=== PATIENT | female | born 1985 | race Caucasian/White ===

== ENCOUNTER 2016-08-22 00:31 | Emergency (ER) | payer MEDICAID ==
[~2016-08-22 00:31] MED LIST: PRENPAK PO; ZOFR4TAB PO
--- NOTE | 2016-08-22 01:48 | PD ---
HPI Chief Complaint Running nose, nasal congestion, sinusitis, contractions Date Seen: Aug 22, 2016 Time Seen: 01:30 Travel History International Travel<30 Days: No Contact w/Intl Traveler<30Days: No Known Affected Area: No History of Present Illness HPI 31-year-old 001 at 41 weeks and 3 days of gestation, EDC 08/12/16, patient presents to OB ED with complain of runny nose, nasal congestion, sinusitis, and contractions. She denies leakage of fluids, vaginal bleeding. She reports presence of movements. care is with Dr. Yanez, course is significant for previous 1. Patient desires to have trial of labor after . Examination shows patient is ramón occasionally, vaginal exam shows cervix is 1-2 cm, 50%, -3, posterior. Patient was scheduled to have this trial of labor on 08/20/16 but did not show up. Para: 1 : 2 Miscarriage: 0 : 0 History Past Medical History Narrative Medical Denies Medical History: Denies Significant Hx Obstetric History Obstetric History delivery 1 Past Surgical History Narrative Surgical delivery 1 Family History Narrative Family History Father has hypertension and diabetes Social History Alcohol Use: No Tobacco Use: No Substance Abuse: No Allergies-Medications (Allergen,Severity, Reaction): Coded Allergies: No Known Allergies (Unverified , 10/29/14) Home Meds Active Scripts Ondansetron (Zofran)4 Mg Tab4 Mg PO Q6HR PRN (NAUSEA OR VOMITING) #10 TAB Ref 0 Prov:Zoë Harmon MD 07/05/16 Reported Medications + Dha 1 Tab PO DAILY 10/20/12 Review of Systems HENT: Other (running nose, nasal congestion) Genitourinary: Other (contractions) Physical Exam Narrative GENERAL: Well-nourished, well-developed patient. SKIN: Warm and dry. HEAD: Normocephalic and atraumatic. EYES: No scleral icterus. No injection or drainage. ENT: No nasal drainage noted. Mucous membranes pink. Airway patent. NECK: Supple, trachea midline. No JVD. CARDIOVASCULAR: Regular rate and rhythm without murmurs, gallops, or rubs. RESPIRATORY: Breath sounds equal bilaterally. No accessory muscle use. BREASTS: Bilateral exam showed no masses , no retractions, no nipple discharge. ABDOMEN/GI: Abdomen soft, gravid, non-tender, bowel sounds present, no rebound, no guarding Gravid to 41weeks size Fundal Height: 41 cm GENITOURINARY: External Genitalia: intact and normal in appearance BUS glands: Normal Cervix: 1-2 cm,, 50%, -3, posterior Dilatation: 1-2 cm Effacement: 50% Station: -3 Presentation: Cephalic Membranes: Intact Uterine Contractions: Occasional FHT's: Category: one Baseline: 140s Reactive: Yes Variability: Moderate Decels: None EXTREMITIES: No cyanosis or edema. BACK: Nontender without obvious deformity. No CVA tenderness. NEUROLOGICAL: Awake and alert. Motor and sensory grossly within normal limits. Five out of 5 muscle strength in all muscle groups. Normal speech. Data Data Vital Signs Reviewed: Yes Orders Vital Signs (Adult) .ON ADMISSION (08/22/16 01:29) ^ Labor Status (08/22/16 01:29) ^ Non Stress Test (08/22/16 01:29) ^ Hydration (08/22/16 01:29) MDM Medical Record Reviewed: Yes Diagnosis Diagnosis: Primary Impression: Post term at 41 weeks gestation Additional Impression: History of delivery Disposition: 01 DISCHARGE HOME Condition: Stable Patient Instructions: Early Labor Signs (ED), General Instructions, Having Your Baby: The Labor Process (GEN) Additional Instructions: RETURN FOR LEAKING OF FLUID, STRONG CONTRACTIONS, VAGINAL BLEEDING OR DECREASE IN BABY MOVING.RETURN AT 8AM FOR INDUCTION Departure Forms: Tests/Procedures Eulalio Draper MD Aug 22, 2016 01:48
[2016-08-23] MEDS ORDERED: TYLE325T PO (02:56)
== END 2016-08-22 01:20 | disposition home or self-care (01) ==
LOC: HOBED 00:31
DX: O26.893 Other specified pregnancy related conditions, third trimester (principal); O99.513 Diseases of the respiratory system complicating pregnancy, third trimester
CPT/HCPCS: 99284

== ENCOUNTER 2016-08-22 12:58 | Inpatient (IN) | payer MEDICAID ==
--- NOTE | 2016-08-22 15:27 | HHI.HP ---
History & Physical H&P HPI Chief Complaint IOL for postdates Date Seen: Aug 22, 2016 Time Seen: 01:30 Travel History International Travel<30 Days: No Contact w/Intl Traveler<30Days: No Known Affected Area: No History of Present Illness HPI 31-year-old 001 at 41 weeks and 4 days of gestation, EDC 08/12/16, patient presents for iol, tolac. She denies leakage of fluids, vaginal bleeding. She reports presence of movements. care is with Dr. Womack, course is significant for previous 1. Patient desires to have trial of labor after . Examination shows patient is ramón occasionally, vaginal exam shows cervix is 1-2 cm, 50%, -3, posterior. Patient was scheduled to have this trial of labor on 08/20/16 but did not show up. She was supposed to present this morning for iol. Para: 1 : 2 Miscarriage: 0 : 0 History (Limited) History Past Medical History Narrative Medical Denies Medical History: Denies Significant Hx Obstetric History Obstetric History delivery 1 D&C wisdom tooth removal Past Surgical History Narrative Surgical delivery 1 Family History Narrative Family History Father has hypertension and diabetes Social History Alcohol Use: No Tobacco Use: No Substance Abuse: No Allergies-Medications Allergies-Medications (Allergen,Severity, Reaction): Coded Allergies: No Known Allergies (Unverified , 10/29/14) Home Meds Active Scripts Ondansetron (Zofran)4 Mg Tab4 Mg PO Q6HR PRN (NAUSEA OR VOMITING) #10 TAB Ref 0 Prov:Zoë Harmon MD 07/05/16 Reported Medications + Dha 1 Tab PO DAILY 10/20/12 ROS Review of Systems HENT: Other (running nose, nasal congestion) Genitourinary: Other (contractions) Physical Exam Physical Exam Narrative GENERAL: Well-nourished, well-developed patient. SKIN: Warm and dry. HEAD: Normocephalic and atraumatic. EYES: No scleral icterus. No injection or drainage. ENT: No nasal drainage noted. Mucous membranes pink. Airway patent. NECK: Supple, trachea midline. No JVD. CARDIOVASCULAR: Regular rate and rhythm without murmurs, gallops, or rubs. RESPIRATORY: Breath sounds equal bilaterally. No accessory muscle use. ABDOMEN/GI: Abdomen soft, gravid, non-tender, bowel sounds present, no rebound, no guarding Gravid to 41weeks size Fundal Height: 41 cm GENITOURINARY: External Genitalia: intact and normal in appearance BUS glands: Normal Cervix: 1 cm,, 50%, -4, posterior Dilatation: 1 cm Effacement: 50% Station: -4 Presentation: Cephalic Membranes: Intact Uterine Contractions: Occasional FHT's: Category: one Baseline: 140s Reactive: Yes Variability: Moderate Decels: None EXTREMITIES: No cyanosis or edema. BACK: Nontender without obvious deformity. No CVA tenderness. NEUROLOGICAL: Awake and alert. Motor and sensory grossly within normal limits. Five out of 5 muscle strength in all muscle groups. Normal speech. Data Data Data Vital Signs Reviewed: Yes Orders MDM MDM Medical Record Reviewed: Yes Diagnosis Diagnosis: Primary Impression: Post term at 41 weeks gestation Additional Impression: History of delivery Gestational diabetes Disposition: admission for delivery Condition: Stable A/P: 31 yo with iup at 41w4d here for tolac 1) h/o cd for arrest of descent at 41 wk (7lb 9oz)- pt initially agreed to FB and low dose pitocin. She then changed her mind and wanted to go home as she was not 42 wk yet. Discussed risks of IUFD, increased size, risk of oligohydramnios, placental insufficiency with advanced gestational age. She and were given time to consider options. They have elected to proceed with induction. Discussed that she was at a higher failure rate as efw of this child is similar to previous child, she has not gone into spontaneous labor. FB placed. 2) gdm- good glycemic control during 3) gbs neg 4) Fetus- ceph approx 7.5-8 lb Corrie Cai MD Aug 22, 2016 15:26
[2016-08-22] MEDS ORDERED: LACTATED RINGER'S 1000 ML INJ 1,000 ML IV PRN (15:33)
[2016-08-22 15:44] LABS: AUTOMATED NEUTROPHIL # 7.2 TH/MM3 (1.8-7.7); BASOPHIL # 0.1 TH/MM3 (0-0.2); BASOPHIL % 0.5 % (0.0-2.0); EOSINOPHIL # 0.1 TH/MM3 (0-0.4); EOSINOPHIL % 0.8 % (0.0-4.0); HEMATOCRIT 33.6 % (35.0-46.0); HEMO FLAGS DIFF FINAL; LYMPH % 18.2 % (9.0-44.0); LYMPHOCYTE # 1.8 TH/MM3 (1.0-4.8); MEAN CELL VOLUME 90.5 FL (80.0-100.0); MEAN CORPUSCULAR HEMOGLOBIN 30.7 PG (27.0-34.0); MONO % 8.4 % (0.0-8.0); NEUT % 72.1 % (16.0-70.0); PLATELET COUNT 288 TH/MM3 (150-450); RED BLOOD COUNT 3.71 MIL/MM3 (4.00-5.30); RED CELL DISTRIBUTION WIDTH 14.1 % (11.6-17.2)
[2016-08-22] MEDS ORDERED: MINERAL OIL 10 ML VIAL TOPICAL PRN (15:45)
[2016-08-22] MEDS ORDERED: ONDANSETRON HCL 4 MG/2 ML VIAL IV PRN (15:45)
[2016-08-22] MEDS ORDERED: OXYTOCIN 30 UNITS-500ML PREMIX 500 ML IV ONE (15:45)
[2016-08-22] MEDS ORDERED: CITRIC ACID-SODIUM CITRATE LIQ 30 ML UDC PO SCH (15:45)
[2016-08-22] MEDS ORDERED: LIDOCAINE HCL 1% 50 ML VIAL I-DERMAL PRN (15:45)
[2016-08-22] MEDS ORDERED: ceFAZolin 2 GM PREMIX 50 ML IV ONE (15:45)
[2016-08-22] MEDS ORDERED: SODIUM CHLORID 0.9% 500 ML INJ 500 ML IV PRN (15:45)
[2016-08-22] MEDS ORDERED: LIDOCAINE HCL 1% 50 ML VIAL INFIL PRN (15:45)
[2016-08-22] MEDS ORDERED: SODIUM CHLOR 0.9% 1000 ML INJ 1,000 ML IV PRN (15:53)
[2016-08-22] MEDS: LACTATED RINGER'S 1000 ML INJ 1,000 ML IV SCH ×2 (16:04→21:00)
[2016-08-22 16:20] LABS: BACTERIA, URINE RARE /hpf; BLOOD, URINE NEG (NEG); COMMENT (UR) CULT NOT INDICATED; CULTURE IF INDICATED CULT NOT INDICATED; GLUCOSE,URINE 300 mg/dL (NEG); KETONE, URINE TRACE mg/dL (NEG); NITRITE,URINE NEG (NEG); PH, URINE 5.5 (5.0-8.5); SQUAMOUS EPITHELIAL CELL URINE 4 /hpf (0-5); URINE COLOR YELLOW (YELLW/STRAW)
[2016-08-22] MEDS ORDERED: OXYTOCIN 30 UNITS-500ML PREMIX 500 ML IV SCH (18:45)
[2016-08-23] MEDS: LACTATED RINGER'S 1000 ML INJ 1,000 ML IV SCH ×2 (01:50→20:38)
[2016-08-23] MEDS ORDERED: TYLE325T PO (02:56)
--- NOTE | 2016-08-23 09:42 | MH ---
cc: LEXY PINON MD DATE OF ADMISSION: 08/22/2016 HISTORY OF PRESENT ILLNESS She is [id number], 3, para 1-0-1-1, intrauterine at 41 weeks and one day. care has been with [facility], remarkable only for gestational diabetes which has been well-controlled with diet. She is Rh negative. Did not get RhoGAM because her partner is also Rh negative. History of a lower segment transverse incision. Desires trial of labor. The patient was last seen on 08/18/2016 at which time she had a sonogram. PEARL was 6.8. Baby was 7 pounds 7 ounces, vertex, fundal placenta. Biophysical profile was 8/8 at that time. She is group-B strep negative. PAST OB HISTORY Significant for one in [address] Yanez, documented lower segment transverse section, and one spontaneous AB in 2014. PAST [facility] HISTORY Unremarkable. She had a D&C for the missed AB. PAST MEDICAL HISTORY She denies hypertension or asthma. She has had gestational diabetes in this . PAST SURGICAL HISTORY 1. . 2. D&C. 3. [place] teeth removal. SOCIAL HISTORY She denies toxic habits. MEDICATIONS She takes vitamins. ALLERGIES No known drug allergies. PHYSICAL EXAMINATION VITAL SIGNS: Stable. Blood pressure 120/62. She is 196 pounds. HEAD, HEART, CHEST AND LUNGS: Within normal limits. ABDOMEN: Soft, nontender, gravid. PELVIC: She is 1 cm dilated, 70% effaced. ASSESSMENT AND PLAN She had been counseled extensively on 08/18/2016 about induction of labor at that time due to the PEARL being 6.8. However, she declined and wanted to wait until today in case she went into labor on her own which has not happened, so she will be admitted for Pitocin augmentation of labor, possible artificial rupture of membranes. The risks, benefits and alternatives have been explained. MD JAX Bazan/JASS /1:31 PM /9:39 AM [facility]
[2016-08-23] MEDS ORDERED: fentaNYL 2MCG-BUPIV 0.125% INJ 100 ML ONE (09:49)
--- NOTE | 2016-08-23 11:06 | PD.LABORPN ---
Subjective Subjective Late entry, seen at 0930 PT feeling contractions more strongly now Objective Objective Pelvic Exam: /-2 intact, cephalic. AROM performed, clear Ctx q 2-5 min FHT's: Category: I Baseline: 130 Reactive:y Variability: mod Decels: [-] Assessment/Plan Problem List: (1) Post term at 41 weeks gestation (2) History of delivery (3) Gestational diabetes Assessment and Plan A/P: 31 yo with iup at 41w4d here for tolac 1) h/o cd for arrest of descent at 41 wk (7lb 9oz)- pt initially agreed to FB and low dose pitocin. Discussed that she was at a higher failure rate as efw of this child is more than previous child, she has not gone into spontaneous labor. FB placed yesterday. AROM this am with iupc placement. Discussed fetus still high station. discussed criteria for arrest of descent and dilation and when cd would be indicated. 2) gdm- good glycemic control during 3) gbs neg 4) Fetus- ceph approx 7.5-8 lb (08/18/2016 sonogram, PEARL was 6.8. Baby was 7 pounds 7 ounces, vertex, fundal placenta) 5) RH neg- partner Rh neg Crorie Cai MD Aug 23, 2016 11:06
[2016-08-23] MEDS ORDERED: OXYTOCIN 10 UNIT/ML AMP ONE (15:20)
--- NOTE | 2016-08-23 15:24 | PD.LABORPN ---
Subjective Subjective Pt asked for decrease in epidural dose then had increased pain. Epidural rate was increased and she has improved comfort Objective Objective Pelvic Exam: /-1, OT significant molding. cpd. membranes ruptured. MVU adequate for over 2 hours and no cervical change or change of station noted. FHT's: Category: II, mod variability, late decelerations noted. Assessment/Plan Problem List: (1) Post term at 41 weeks gestation (2) History of delivery (3) Gestational diabetes Assessment and Plan A/P: 31 yo with iup at 41w4d here for tolac 1) h/o cd for arrest of descent at 41 wk (7lb 9oz)- pt initially agreed to FB and low dose pitocin. Discussed that she was at a higher failure rate as efw of this child is more than previous child, she has not gone into spontaneous labor. FB placed yesterday. AROM this am with iupc placement. she had adequate mvu for over 2 hours and did not have change from /-1 station. discussed cpd, molding, OT presentation. Pt is in agreement to proceed with cd. very upset. OR team aware, will proceed with surgery. consents signed on chart. 2) gdm- good glycemic control during 3) gbs neg 4) Fetus- ceph approx 7.5-8 lb (08/18/2016 sonogram, PEARL was 6.8. Baby was 7 pounds 7 ounces, vertex, fundal placenta) 5) RH neg- partner Rh neg Corrie Cai MD Aug 23, 2016 15:23
[2016-08-23] MEDS ORDERED: LACTATED RINGER'S 1000 ML INJ 1,000 ML IV ONE (15:30)
[2016-08-23] MEDS ORDERED: LACTATED RINGER'S 1000 ML INJ 1,000 ML IV SCH (16:00)
[2016-08-23 16:09] LABS: BLOOD GAS BASE EXCESS -2.1 mmol/L (-2-2); BLOOD GAS O2 HGB SATURATION 7 % (90-100); CORD BLOOD GAS HCO3 24 mmol/L (21-29); CORD BLOOD GAS PCO2 55 mmHG (34-78); CORD BLOOD GAS PH 7.27 (7.14-7.42)
[2016-08-23 16:10] LABS: CORD BLOOD GAS PO2 9 mmHG (3.0-40.0); DRAW SITE CORD BLOOD; STAT NO
[2016-08-23] MEDS ORDERED: ceFAZolin 2 GM PREMIX 50 ML IV SCH (16:30)
[2016-08-23] MEDS ORDERED: CITRIC ACID-SODIUM CITRATE LIQ 30 ML UDC PO SCH (17:00)
[2016-08-23] MEDS ORDERED: ONDANSETRON HCL 4 MG/2 ML VIAL ONE (17:38)
[2016-08-23] MEDS ORDERED: MORPHINE SULFATE PF 5 MG/10 ML VIAL ONE (17:38)
[2016-08-23] MEDS ORDERED: MIDAZOLAM HCL 5 MG/5 ML VIAL ONE (17:38)
[2016-08-23] MEDS ORDERED: oxyCODONE/ACETAMINOPHEN 5 MG/325 MG TAB PO PRN (18:00)
[2016-08-23] MEDS ORDERED: SODIUM CHLORIDE 0.9% FLUSH 5 ML FLUSH IV PRN (18:00)
[2016-08-23] MEDS ORDERED: OXYTOCIN 30 UNITS-500ML PREMIX 500 ML IV ONE (18:00)
[2016-08-23] MEDS ORDERED: ONDANSETRON HCL 4 MG/2 ML VIAL IV PUSH PRN (18:00)
[2016-08-23] MEDS ORDERED: ZOLPIDEM TARTRATE 5 MG TAB PO PRN (18:00)
[2016-08-23] MEDS ORDERED: ACETAMINOPHEN 325 MG TAB PO PRN (18:00)
[2016-08-23] MEDS ORDERED: SIMETHICONE 80 MG CHEWABLE TAB PO PRN (18:00)
[2016-08-23] MEDS ORDERED: ACETAMINOPHEN 1000 MG/100 ML VIAL IV ONE ×2 (18:00→18:10)
[2016-08-23] MEDS ORDERED: OXYTOCIN 30 UNITS-500ML PREMIX 500 ML ONE (18:13)
--- NOTE | 2016-08-23 18:27 | PD.OB.DELI ---
Procedure Note Section Procedure Pre Op Diagnosis: (1) Post term at 41 weeks gestation (2) History of delivery (3) Gestational diabetes (4) Cephalopelvic disproportion Post Op Diagnosis: (1) Post term at 41 weeks gestation (2) History of delivery (3) Cephalopelvic disproportion (4) Arrest of dilation, delivered, current hospitalization Post Op Diagnosis Large uterine window Performed by Corrie Cai Procedure: Repeat Low Transverse Sec, Other (cystoscopy) Indication for delivery: Other (arrest of descent, cat II tracing) Informed consent obtained: For anesthesia, For procedure Confirmed correct: Patient, Procedure, Site, Time-out taken Anesthesia: Epidural Medication prior to procedure: As documented in eMAR Monitoring during procedure: Blood pressure monitoring, Pulse oximetry Urinary catheter: Inserted using sterile technique, To dependent drainage, ml urine output (500) Sterile preparation: In usual fashion, With 2% chlorexidine (Hibiclens) Position: Supine with wedge to right side, Supine with safety belt applied Operative Features Skin Incision: Pfannenstiel Uterine Incision: Low transverse w/knife / blunt ext Membranes Ruptured: Previously, Amount of liquid (copious), Appearance of fluid (clear) Presentation: Other (OT) Delivery of infant: Uneventful Infant: Female One Minute : 8 Five Minute : 9 Weight: 7 lb 10oz Status of : Viable, Cord blood, Umbilical cord, Nursery present Placenta delivered: Intact Medications: Antibiotics, Oxytocin Estimated blood loss: 500ml Procedure tolerated: Well Maternal Complications: Uterine rupture (large uterine window, amniotic fluid in abdomen) Maternal Condition: Stable Condition: Stable Procedure in detail see dictation Corrie Cai MD Aug 23, 2016 18:27
[2016-08-23] MEDS ORDERED: KETOROLAC TROMETHAMINE 30 MG/ML (IVP) VIAL ONE (19:00)
[2016-08-23] MEDS ORDERED: DO NOT ADMINISTER ANTICOAGULANTS XX PRN (19:45)
[2016-08-23] MEDS ORDERED: EPIDURAL-NALOXONE HCL 0.4 MG/ML AMP IV PRN ×2 (19:45→20:00)
[2016-08-23] MEDS ORDERED: EPIDURAL-DIPHENHYDRAMINE HCL 50 MG/ML VIAL IV PUSH PRN ×2 (19:45→20:00)
[2016-08-23] MEDS ORDERED: fentaNYL 2MCG-BUPIV 0.125% INJ 100 ML EPIDURAL SCH (19:45)
[2016-08-23] MEDS ORDERED: ePHEDrine/NS 50 MG/5 ML SYR IV PRN (19:45)
[2016-08-23] MEDS ORDERED: EPIDURAL-DO NOT ADMINISTER ANTICOAGULANTS XX PRN ×2 (19:45→20:00)
[2016-08-23] MEDS ORDERED: EPIDURAL-DIPHENHYDRAMINE HCL 50 MG CAP PO PRN ×2 (19:45→20:00)
[2016-08-23] MEDS ORDERED: NO SYSTEM NARCOTICS XX PRN (19:45)
[2016-08-23] MEDS ORDERED: EPIDURAL-NO SYSTEMIC NARCOTICS XX PRN ×2 (19:45→20:00)
--- NOTE | 2016-08-23 21:35 | HHI.DCPOC ---
Discharge Care Plan Diagnosis: (1) History of delivery Your Health Problems Are: Incisions/drains delivery Report Symptoms to Your Doctor -Temperate above 100.5 degrees -Redness, of incision or excessive or foul smelling drainage -Unusual pain or calf pain -Increased vaginal bleeding -Painful or difficulty urinating -Feelings of extreme sadness or anxiety after 2 weeks Goals to Promote Your Health * To prevent worsening of your condition and complications * To maintain your health at the optimal level Directions to Meet Your Goals Take your medications as prescribed Follow your dietary instruction Follow activity as directed Ensure plenty of rest for recovery Drink fluids for hydration Keep your appointments as scheduled Take your immunizations and boosters as scheduled If your symptoms worsen call your PCP, if no PCP go to Urgent Care Center or Emergency Room Smoking is Dangerous to Your Health. Avoid second hand smoke Call the 24-hour crisis hotline for domestic abuse at Corrie Cai MD Aug 23, 2016 21:35
[2016-08-24] MEDS ORDERED: OXYTOCIN 30 UNITS-500ML PREMIX 500 ML IV PRN (04:00)
[2016-08-24] MEDS: IBUPROFEN 600 MG TAB PO PRN ×3 (05:23→18:30)
[2016-08-24] MEDS: LACTATED RINGER'S 1000 ML INJ 1,000 ML IV SCH (06:37)
--- NOTE | 2016-08-24 07:49 | HHI.OB ---
Subjective Post Operative Day: 1 Remarks s/p repeat LTCD with uterine window, failed TOLAC, arrest at 9 cm; NOT a candidate for Objective Vitals/I&O Vital Signs Date Time Temp Pulse Resp B/P Pulse Ox O2 Delivery O2 Flow Rate FiO2 08/24/16 06:23 18 Result Diagram: 08/22/16 2579 Objective Remarks GENERAL: Well-nourished, well-developed patient. CARDIOVASCULAR: Regular rate and rhythm without murmurs, gallops, or rubs. RESPIRATORY: Breath sounds equal bilaterally. No accessory muscle use. ABDOMEN/GI: Abdomen soft, non-tender, bowel sounds present. Incision: bandage clean & dry Fundus: Firm, non-tender at umbilicus. GENITOURINARY: Light bleeding. EXTREMITIES: No cyanosis or edema, non-tender, without signs of DVT. Medications and IVs Current Medications Medications (Trade) Dose Ordered Sig/Catrachito Route Start Time Stop Time Status Last Admin (Lr 1000 ml Inj) 1,000 ml @ 100 mls/hr Q10H IV 08/23/16 22:56 08/24/16 18:55 08/24/16 06:37 (NS Flush) 2 ml BID IV 08/23/16 21:00 (NS Flush) 2 ml UNSCH PRN IV 08/23/16 18:00 (Mylicon Chew) 80 mg QID PRN PO 08/23/16 18:00 (Tylenol) 650 mg Q6H PRN PO 08/23/16 18:00 (Motrin) 600 mg Q6H PRN PO 08/23/16 18:00 08/24/16 05:23 (Percocet 5-325 Mg) 1 tab Q4H PRN PO 08/23/16 18:00 (Percocet 5-325 Mg) 2 tab Q4H PRN PO 08/23/16 18:00 (Wendi-Colace) 2 tab Q12H PRN PO 08/23/16 18:00 (Ambien) 5 mg HS PRN PO 08/23/16 18:00 (M-M-R Ii Inj) 0.5 ml ONCE ONCE SQ 08/24/16 16:00 08/24/16 16:01 (Boostrix Inj) 0.5 ml ONCE ONCE IM 08/24/16 16:00 08/24/16 16:01 (Zofran Inj) 4 mg Q6H PRN IV PUSH 08/23/16 18:00 Miscellaneous Information No systemic narcotics to be given except... UNSCH PRN XX 08/23/16 19:45 08/24/16 19:44 Miscellaneous Information DO NOT ADMINISTER ANY ANTICOAGUL... UNSCH PRN XX 08/23/16 19:45 08/24/16 19:44 (fentaNYL 2MCG-BUPIV 0.125% INJ) 100 ml @ 0 mls/hr TITRATE EPIDURAL 08/23/16 19:45 (ePHEDrine/NS 50 MG/5 ML SYR) 10 mg UNSCH PRN IV 08/23/16 19:45 08/24/16 19:44 Miscellaneous Information NO SYSTEMIC NARCOTICS TO BE GIVEN FO... UNSCH PRN XX 08/23/16 19:45 08/24/16 19:44 (Narcan Inj) 0.4 mg UNSCH PRN IV 08/23/16 19:45 08/24/16 19:44 (Benadryl Inj) 25 mg Q6H PRN IV PUSH 08/23/16 19:45 08/24/16 19:44 (Benadryl) 50 mg Q6H PRN PO 08/23/16 19:45 08/24/16 19:44 Miscellaneous Information ALL NURSING DEPARTMENTS UNSCH PRN XX 08/23/16 19:45 08/24/16 19:44 Assessment/Plan Problem List: (1) S/P repeat low transverse (2) Failed trial of labor following previous , delivered (3) Arrest of dilation, delivered, current hospitalization (4) Post term at 41 weeks gestation (5) History of delivery (6) Gestational diabetes Assessment and Plan POD/PPD#1 s/p failed TOLAC and repeat LTCD surgery complicated by uterine window, pt NOT a candidate for pt had cysto postop due to blood in araiza bag; araiza removed, pt states she has voided encourage shower & remove bandage today, ambulate, advance diet routine PP care, plan d/c on POD#3 Discharge Planning routine Génesis David MD Aug 24, 2016 07:49
[2016-08-24 07:57] LABS: AUTOMATED NEUTROPHIL # 13.7 TH/MM3 (1.8-7.7); BASOPHIL % 0.2 % (0.0-2.0); EOSINOPHIL % 0.1 % (0.0-4.0); HEMATOCRIT 27.3 % (35.0-46.0); HEMO FLAGS DIFF FINAL; LYMPH % 9.6 % (9.0-44.0); LYMPHOCYTE # 1.5 TH/MM3 (1.0-4.8); MEAN CELL VOLUME 90.1 FL (80.0-100.0); MEAN CORPUSCULAR HEMOGLOBIN 30.4 PG (27.0-34.0); MEAN CORPUSCULAR HGB CONC 33.7 % (32.0-36.0); MONO % 4.5 % (0.0-8.0); NEUT % 85.6 % (16.0-70.0); PLATELET COUNT 257 TH/MM3 (150-450); RED BLOOD COUNT 3.04 MIL/MM3 (4.00-5.30); RED CELL DISTRIBUTION WIDTH 13.7 % (11.6-17.2)
--- NOTE | 2016-08-24 10:04 | MP ---
cc: MIRIAM CAI MD DATE OF SURGERY 08/23/2016 PREOPERATIVE DIAGNOSES 1. Intrauterine at 41 weeks and 4 days. 2. History of delivery. 3. Rh negative. 4. Gestational diabetes. 5. Arrest of dilation. 6. Cephalopelvic disproportion. 7. Category II tracing. POSTOPERATIVE DIAGNOSES 1. Intrauterine at 41 weeks and 4 days. 2. History of delivery. 3. Rh negative. 4. Gestational diabetes. 5. Arrest of dilation. 6. Cephalopelvic disproportion. 7. Large uterine window. PROCEDURE PERFORMED Repeat delivery and cystoscopy. SURGEON Miriam Cai MD HUMANE OFF[employer]. INDICATION The patient is a 31-year-old G3, P 1-0-1-1 with an intrauterine at 41 weeks and 4 days. She is a patient of [facility] who was being followed by ALEXANDRA at the end of her . She was most recently being seen by Dr. Womack. She was offered an induction at 40+ wk and refused. She was scheduled to have an induction of labor on 08/20/2016 but did not present for her induction. The subsequent day 08/21/2016 she was called multiple times by percussion instructor doctor and the patient did not answer or return phone calls. She then presented to triage with complaints of nasal congestion. She refused to be admitted and stay for induction of labor at that time. She was scheduled to return on 08/22/2016 at 8 a.m. for induction. She once again did not present herself to labor and delivery. She was called by this MD at approximately 11 o'clock a.m. She stated that she would come within an hour or two. She finally did present to labor and delivery when she was placed on monitors and noted to not be ramón and still be 1 cm dilated. She and were reluctant to stay in the hospital and wanted to be discharged. A discussion was held regarding the risks of going home including uteroplacental insufficiency, intrauterine demise, uterine rupture leading to possible exsanguination and maternal and . The family was informed if they left it would be against medical advice. Time was given to the family to discuss amongst themselves. They did elect to stay for the induction. The patient's induction was started with a Bedolla bulb. After Bedolla bulb came out the patient was approximately 3 cm dilated. She then received low dose Pitocin for duration of induction. Once AROM could be performed an IUPC was placed to monitor [place] units. She reached a maximal dilation of 9 cm, 80% effacement but was still -1 station after 2 hours with no cervical change. There was significant molding and OT presentation of the fetus. Discussed with the patient and that her pelvis was not adequate, that this child weighed more than previous child and it would be highly unlikely that she would be able to deliver vaginally. Additionally, over the last 20 minutes she had developed some variable possible late decelerations, but had maintained variability. Discussed with family that this can be sustained in the short-term but could lead to deterioration in condition and highly advised to proceed with delivery. very confrontational and accusatory stating that she did not have to have a if she did not want and that it was just this MD's personal opinion that she could not have a vaginal delivery and that the only thing desired by the labor and delivery team was that she have a repeat section. I informed the patient and family that a trial of labor was offered but not successful and it would be in the patient and the fetus's best interest to proceed with . The patient did decide to proceed with delivery as she stated that she would be too tired to push. A cystoscopy was performed at the end of the as urine which was previously blood tinged was now a dark red. The findings and need for cystoscopy were explained to the patient who was in agreement with plan.. ANESTHESIA Epidural. IV FLUIDS 1000 ml of lactated Ringer. COUNTS Sponge, lap, needle, instrument correct x2. PREOPERATIVE ANTIBIOTICS Ancef 2 grams IV given pre incision. PROPHYLAXIS DVT prophylaxis bilateral extremity SCDs. INTRAOPERATIVE FINDINGS Viable female infant, Apgars of 8 and 9. weight 7 pounds 10 ounces. MATERNAL FINDINGS Large amount of amniotic fluid noted upon entry into peritoneum with large lower uterine segment window translucent, approximately 5 cm in width and 3 cm in height. No visible rupture but when placing slight pressure on the uterus amniotic fluid was noted to be extravasating between the filmy adhesions from the bladder and the lower uterine segment. Uterine window paper thin. Normal tubes and ovaries bilaterally. Prominent sacral promontory with platypelloid pelvis. Postoperative cystoscopy noted normal bladder, good bladder capacity. After cystoscopy urine was noted to be clear. SPECIMEN Cord blood and cord gas. PROCEDURE IN DETAIL After review of informed consent the patient was taken to operating room where epidural was noted to be adequate. Bedolla was already in place. The abdomen was prepped and draped in normal sterile fashion. Skin incision was made with a scalpel over her previous hysterotomy, the incision was taken down to the fascia with the Bovie. The fascia was incised bilaterally. This incision was extended with Celeste scissors bilaterally. The superior edge of the fascia was elevated and the rectus muscles dissected off with Celeste scissors. The same was repeated anteriorly. The rectus muscles were in the midline. There was some scarring of the rectus muscles to the peritoneum. The peritoneum was entered sharply after tenting with hemostats. This incision was slowly extended with Celeste scissors. With the initial entry a large amount of amniotic fluid extravasated from the peritoneal incision. The bladder blade was then inserted. The uterus was inspected and noted to have a large uterine window. Some filmy adhesions between the bladder and lower uterine segment were taken down with metzenbaum scissors. An uterine incision was made superior to the weak uterine window; incision was made with the scalpel and extended bluntly. The head was low in the pelvis. The head was flexed and elevated to the level of the hysterotomy. When gentle fundal pressure was used to deliver the head the rest of the body readily followed. The cord was double clamped and cut. Baby was handed off to waiting pediatricians. Bulb suctioned the baby. Segment of cord was double clamped and cut. Cord blood and gases collected. The uterus was then massaged and cord traction was used to deliver the placenta. The uterus was exteriorized. The right inferior edge of the hysterotomy had very thin tissue, paper thin. This area was reinforced with healthier tissue laterally with multiple imbricating layers with 2-0 chromic. The hysterotomy was then repaired in two layers with 0 chromic, the first was a running lock stitch, the second layer was an imbricating layer. The posterior cul-de-sac was then irrigated and suctioned and inspection of the entire uterus was performed to make sure there is no rupture in the posterior or lateral aspect of the uterus or any other abnormalities. Maternal sacrum was noted to be prominent. Her pelvis was platypelloid. The uterus was then replaced into the abdomen. Good hemostasis was noted of the hysterotomy. Irrigation and suction was performed in the anterior cul-de-sac. An adhesive barrier was placed. The rectus muscles were partially transected with Bovie on the left to obtain sufficient room for delivery of infant. The fascia and rectus muscles were inspected to ensure hemostasis. The fascia was then closed with #1 Vicryl in a running fashion. The subcutaneous layer was closed, after irrigation and hemostasis was obtained, with 2-0 chromic in a running fashion. The skin was closed with john. A pressure dressing was placed once procedure was performed. The urine was noted to be very dark red after drapes were removed. Decision was made to perform a cystoscopy. The patient's perineum was prepped and draped in normal sterile fashion. After the Bedolla was removed and cystoscopy was performed, noted good bladder distension. No defects in the bladder. Bladder dome was intact. After procedure urine was noted to be just a slight pink tinged. Discussion was held with the patient and the partner regarding the risks of future . Did not recommend further . If she did elect to have another , she would have to have a repeat and this would be a very high risk and she would be treated as if she had a prior classical delivery. Discussed the findings of cystoscopy and reason for performing cystoscopy. The patient was in understanding. Again, this patient is NOT an acceptable candidate for TOLAC. Miriam Cai MD PE/JUVENTINO /6:01 PM /9:55 AM SCOTT
[2016-08-24] MEDS: oxyCODONE/ACETAMINOPHEN 5 MG/325 MG TAB PO PRN ×2 (11:41→18:30)
[2016-08-24] MEDS ORDERED: MEASLES, MUMPS, RUBELLA VACCINE 0.5 ML VIAL SQ ONE (16:00)
[2016-08-24] MEDS ORDERED: DIPHTH/TETANUS/ACEL PERTUSSIS (BOOSTER) 0.5 ML VIAL/PFS IM ONE (16:00)
[2016-08-24] MEDS: DOCUSATE SODIUM 50 MG/SENNA 8.6 MG TAB PO PRN (18:30)
[2016-08-24] MEDS: SODIUM CHLORIDE 0.9% FLUSH 5 ML FLUSH IV SCH (21:00)
[2016-08-25] MEDS: IBUPROFEN 600 MG TAB PO PRN ×3 (01:33→16:55)
[2016-08-25 02:57] VITALS: RESP 18
[2016-08-25] MEDS: DOCUSATE SODIUM 50 MG/SENNA 8.6 MG TAB PO PRN (09:16)
--- NOTE | 2016-08-25 10:08 | HHI.OB ---
Subjective Post Operative Day: 2 Remarks Transitioning well, reducing narcotic pain meds due to constipation Objective Vitals/I&O Vital Signs Date Time Temp Pulse Resp B/P Pulse Ox O2 Delivery O2 Flow Rate FiO2 08/25/16 02:57 18 08/24/16 19:50 18 Result Diagram: 08/24/16 0740 Objective Remarks GENERAL: Well-nourished, well-developed patient. CARDIOVASCULAR: Regular rate and rhythm without murmurs, gallops, or rubs. RESPIRATORY: Breath sounds equal bilaterally. No accessory muscle use. ABDOMEN/GI: Abdomen soft, non-tender, bowel sounds present. Incision: bandage clean & dry Fundus: Firm, non-tender at umbilicus. GENITOURINARY: Light bleeding. EXTREMITIES: No cyanosis or edema, non-tender, without signs of DVT. Medications and IVs Current Medications Medications (Trade) Dose Ordered Sig/Catrachito Route Start Time Stop Time Status Last Admin (NS Flush) 2 ml BID IV 08/23/16 21:00 (NS Flush) 2 ml UNSCH PRN IV 08/23/16 18:00 (Mylicon Chew) 80 mg QID PRN PO 08/23/16 18:00 (Tylenol) 650 mg Q6H PRN PO 08/23/16 18:00 (Motrin) 600 mg Q6H PRN PO 08/23/16 18:00 08/25/16 09:17 (Percocet 5-325 Mg) 1 tab Q4H PRN PO 08/23/16 18:00 08/24/16 18:30 (Percocet 5-325 Mg) 2 tab Q4H PRN PO 08/23/16 18:00 (Wendi-Colace) 2 tab Q12H PRN PO 08/23/16 18:00 08/25/16 09:16 (Ambien) 5 mg HS PRN PO 08/23/16 18:00 Ondansetron HCl 4 mg 4 mg Q6H PRN IV PUSH 08/23/16 18:00 (fentaNYL 2MCG-BUPIV 0.125% INJ) 100 ml @ 0 mls/hr TITRATE EPIDURAL 08/23/16 19:45 Assessment/Plan Problem List: (1) S/P repeat low transverse (2) Failed trial of labor following previous , delivered (3) Arrest of dilation, delivered, current hospitalization (4) Post term at 41 weeks gestation (5) History of delivery (6) Gestational diabetes Assessment and Plan POD/PPD#2 s/p failed TOLAC and repeat LTCD surgery complicated by uterine window, pt NOT a candidate for pt had cysto postop due to blood in araiza bag; araiza removed, pt states she has voided encourage shower and ambulation; plan d/c on POD#3 Discharge Planning routine Attending Attestation Seen by Ronald Gonzalez MD Aug 25, 2016 10:08
[2016-08-25] MEDS: SODIUM CHLORIDE 0.9% FLUSH 5 ML FLUSH IV SCH (21:00)
[2016-08-26] MEDS: IBUPROFEN 600 MG TAB PO PRN ×2 (00:37→06:37)
[2016-08-26] MEDS: DOCUSATE SODIUM 50 MG/SENNA 8.6 MG TAB PO PRN (00:37)
[2016-08-26] MEDS ORDERED: OXYC1TAB63 PO (08:01)
[2016-08-26] MEDS ORDERED: IBUP-232 PO (08:01)
--- NOTE | 2016-08-26 08:04 | HHI.OB ---
Subjective Post Operative Day: 3 Remarks doing well, +BM, c/o pulling sensation at the insertion of achilles tendon to heel on rt Objective Vitals/I&O VSS afeb Result Diagram: 08/24/16 0740 Objective Remarks GENERAL: Well-nourished, well-developed patient. CARDIOVASCULAR: Regular rate and rhythm without murmurs, gallops, or rubs. RESPIRATORY: Breath sounds equal bilaterally. No accessory muscle use. ABDOMEN/GI: Abdomen soft, non-tender, bowel sounds present. Incision: john clean & dry Fundus: Firm, non-tender at umbilicus. GENITOURINARY: Light bleeding. EXTREMITIES: No cyanosis or edema, non-tender, without signs of DVT. Medications and IVs Current Medications Medications (Trade) Dose Ordered Sig/Catrachito Route Start Time Stop Time Status Last Admin (NS Flush) 2 ml BID IV 08/23/16 21:00 (NS Flush) 2 ml UNSCH PRN IV 08/23/16 18:00 (Mylicon Chew) 80 mg QID PRN PO 08/23/16 18:00 (Tylenol) 650 mg Q6H PRN PO 08/23/16 18:00 (Motrin) 600 mg Q6H PRN PO 08/23/16 18:00 08/26/16 06:37 (Percocet 5-325 Mg) 1 tab Q4H PRN PO 08/23/16 18:00 08/24/16 18:30 (Percocet 5-325 Mg) 2 tab Q4H PRN PO 08/23/16 18:00 (Wendi-Colace) 2 tab Q12H PRN PO 08/23/16 18:00 08/26/16 00:37 (Ambien) 5 mg HS PRN PO 08/23/16 18:00 Ondansetron HCl 4 mg 4 mg Q6H PRN IV PUSH 08/23/16 18:00 (fentaNYL 2MCG-BUPIV 0.125% INJ) 100 ml @ 0 mls/hr TITRATE EPIDURAL 08/23/16 19:45 Assessment/Plan Problem List: (1) S/P repeat low transverse (2) Failed trial of labor following previous , delivered (3) Arrest of dilation, delivered, current hospitalization (4) Post term at 41 weeks gestation (5) History of delivery (6) Gestational diabetes Assessment and Plan POD/PPD#3 s/p failed TOLAC and repeat LTCD surgery complicated by uterine window, pt NOT a candidate for pt had cysto postop due to blood in araiza bag; araiza removed, pt states she has voided encourage shower and ambulation; plan d/c on POD#3 Discharge Planning routine Attending Attestation seen by Love Davidson MD Aug 26, 2016 08:03
== END 2016-08-26 11:39 | disposition home or self-care (01) | DRG 765 ==
LOC: H2EA 12:58 → H1EA 08-23 19:38
PROVIDERS: ADMIT Obstetrics & Gynecology; ATTEND Obstetrics & Gynecology
PROC: 3E033VJ Introduction of Other Hormone into Peripheral Vein, Percutaneous Approach (ICD-10-PCS; 2016-08-22)
PROC: 10D00Z1 Extraction of Products of Conception, Low, Open Approach (ICD-10-PCS; principal; 2016-08-23)
PROC: 10907ZC Drainage of Amniotic Fluid, Therapeutic from Products of Conception, Via Natural or Artificial Opening (ICD-10-PCS; 2016-08-23)
PROC: 0TJB8ZZ Inspection of Bladder, Via Natural or Artificial Opening Endoscopic (ICD-10-PCS; 2016-08-23)
PROC: 3E0P05Z Introduction of Adhesion Barrier into Female Reproductive, Open Approach (ICD-10-PCS; 2016-08-23)
DX: O48.0 Post-term pregnancy (principal); O40.3XX0 Polyhydramnios, third trimester, not applicable or unspecified; O24.429 Gestational diabetes mellitus in childbirth, unspecified control; O34.211 Maternal care for low transverse scar from previous cesarean delivery; O61.0 Failed medical induction of labor; O62.0 Primary inadequate contractions; O76 Abnormality in fetal heart rate and rhythm complicating labor and delivery; O62.1 Secondary uterine inertia; O34.593 Maternal care for other abnormalities of gravid uterus, third trimester; O66.41 Failed attempted vaginal birth after previous cesarean delivery; K59.00 Constipation, unspecified; Z37.0 Single live birth; Z3A.41 41 weeks gestation of pregnancy
CPT/HCPCS: 59025; 81001; 82805; 82948; 85025; 86850; 86900; 86901; 99284; C1765; J0131; J0690; J1885; J2250; J2274; J2405; J2590; J7120